=== PATIENT | male | born 1970 | race Caucasian/White ===

== ENCOUNTER 2016-05-29 22:24 | Emergency (ER) | payer SELFPAY ==
[2016-05-29 22:34] VITALS: BP 153/107; PULSE 88; TEMP 97.7; BMI 34.1
[2016-05-29] MEDS ORDERED: SODIUM CHLORIDE 1,000 ML IV STA (23:33)
[2016-05-29] MEDS ORDERED: morphine CARPU-JECT 4 MG/1 ML DISP.SYRIN IVPUSH ONE (23:55)
[2016-05-29 23:56] LABS: BASOPHIL 0.9 % (0-2.0); EOSINOPHIL 2.4 % (0-4.5); MCH 29.7 pg (25.7-33.7); MCHC 34.5 g/dl (32.0-35.9); MEAN PLT VOLUME 7.8 fl (7.5-11.1); NEUTROPHILS 62.5 % (42.8-82.8); PLATELET COUNT 378 K/MM3 (134-434); RDW 12.8 % (11.9-15.9); WHITE BLOOD COUNT 12.8 K/mm3 (4.0-10.0)
[2016-05-29] MEDS ORDERED: morphine CARPU-JECT 4 MG/1 ML DISP.SYRIN ONE (23:58)
[2016-05-30] MEDS ORDERED: LIDOCAINE HCL 1%, 10 MG/ML (50 mL VIAL) INF ONE (00:04)
[2016-05-30] MEDS ORDERED: LIDOCAINE HCL/PF 1% SDV 5ML VIAL ONE (00:19)
[2016-05-30 00:20] LABS: CALCIUM 8.6 mg/dL (8.5-10.1); COCKROFT - GAULT 123.98
--- NOTE | 2016-05-30 01:18 | PDOC ---
History of Present Illness - General Chief Complaint: Abscess Boil Stated Complaint: ABSCESS BOIL Time Seen by Provider: 05/29/16 23:09 History Source: Patient Exam Limitations: No Limitations - History of Present Illness Initial Comments: 05/30/16 01:10 45yo Male patient presents to ED c/o back pain (abscess). Patient states symptoms began 1 week ago with intermittent low grade fever and h/a. Patient denies any other complaints at this time. Timing/Duration: reports: week Severity: Yes: severe Location: reports: torso Respiratory Risk Factors: denies: no cause identified, exposure to illness, exposure to allergen, foods, insect bite, insect sting, medications, pollen, soaps, other Modifying Factors: worse with: antihistamine, calamine lotion, prednisone, scratching, topical steriods, other Associated Symptoms: denies: denies symptoms, blisters, change in skin texture, edema, fever, flushing, headache, hives, jaundice, malaise, nasal congestion, numbness, pallor, paresthesia, petechiae, rash, sore throat, swelling/mass/lumps , tingling, other Past History - Travel Traveled outside of the country in the last 30 days: No Close contact w/someone who was outside of country & ill: No - Past Medical History Allergies/Adverse Reactions: Allergies Allergy/AdvReac Type Severity Reaction Status Date / Time No Known Allergies Allergy Verified 05/29/16 22:32 Home Medications: Ambulatory Orders Cephalexin Monohydrate [Keflex -] 500 mg PO BID #20 capsule 05/30/16 Oxycodone HCl/Acetaminophen [Percocet 5-325 mg Tablet] 1 tab PO Q6H PRN #20 tablet MDD 4 tabs 05/30/16 Sulfamethoxazole/Trimethoprim [Bactrim Ds -] 1 tab PO BID #20 tablet 05/30/16 - Psycho/Social/Smoking Cessation Hx Suicidal Ideation: No Smoking History: Never smoked Review of Systems - Review of Systems Able to Perform ROS?: Yes Is the patient limited Mongolian proficient: No Constitutional: Yes: Fever. No: Chills Cardiac (ROS): No: Chest Pain Integumentary: Yes: Other (Abscess/Boil) All Other Systems: Reviewed and Negative *Physical Exam - Vital Signs Last Vital Signs Temp Pulse Resp BP Pulse Ox 97.7 F 88 18 153/107 97 05/29/16 22:32 05/29/16 22:32 05/29/16 22:32 05/29/16 22:32 05/29/16 22:32 - Physical Exam General Appearance: Yes: Nourished, Appropriately Dressed, Mild Distress. No: Apparent Distress, Moderate Distress, Severe Distress Neck: positive: Trachea midline, Supple. negative: Stridor, Lymphadenopathy (R) , Lymphadenopathy (L) Respiratory/Chest: positive: Lungs Clear, Normal Breath Sounds. negative: Chest Tender, Respiratory Distress, Accessory Muscle Use, Labored Respiration, Rapid RR Cardiovascular: positive: Regular Rhythm, Regular Rate. negative: S1, S2, Edema , JVD, Murmur Gastrointestinal/Abdominal: positive: Normal Bowel Sounds, Soft, Distended. negative: Tender, Guarding, Rebound, Tenderness Musculoskeletal: positive: Normal Inspection. negative: CVA Tenderness, Decreased Range of Motion, Muscle Spasm Extremity: positive: Normal Capillary Refill, Normal Inspection, Normal Range of Motion Integumentary: positive: Normal Color, Dry, Warm, Erythema, Swelling, Other ( Large Boil to thoraic region of upper back.) Neurologic: positive: float builder II-XII NML intact, Fully Oriented, Alert, Normal Mood/ Affect, Normal Response, Motor Strength 5/5 Procedures - Incision and Drainage I&D Site: Right: Torso Betadine cleansed: No Anesthesia: 1% Lidocaine Volume(ml): 8 Blade Size: 11 Attempts: 1 Iodinated Packin/4 in Plain Packing: Yes Complications: none Dressing: Yes (Pressure dressing) Progress: 05/30/16 01:14 Patient tolerated procedure fairly. ED Treatment Course - LABORATORY CBC & Chemistry Diagram: 05/29/16 23:49 05/29/16 23:49 - ADDITIONAL ORDERS Additional order review: Laboratory Results 05/29/16 23:49 Sodium 139 Potassium 4.1 Chloride 102 Carbon Dioxide 28 Anion Gap 9 BUN 15 Creatinine 1.0 Random Glucose 95 Calcium 8.6 05/29/16 23:49 RBC 5.18 MCV 86.0 MCHC 34.5 RDW 12.8 MPV 7.8 Neutrophils % 62.5 Lymphocytes % 27.3 Monocytes % 6.9 Eosinophils % 2.4 Basophils % 0.9 - Medications Given in the ED: ED Medications Discontinued Medications Generic Name Dose Route Start Last Admin Trade Name Freq PRN Reason Stop Dose Admin Sodium Chloride 1,000 mls @ 1,000 mls/hr 05/29/16 23:33 05/29/16 23:53 Normal Saline - IV 05/30/16 00:32 1,000 mls/hr ASDIR STA Administration Lidocaine HCl 10 ml 05/30/16 00:04 05/30/16 00:22 Xylocaine 1% INF 05/30/16 00:05 10 ml ONCE ONE Administration Morphine Sulfate 4 mg 05/29/16 23:55 05/30/16 00:02 Morphine Injection - IVPUSH 05/29/16 23:56 4 mg ONCE ONE Administration *DC/Admit/Observation/Transfer Diagnosis at time of Disposition: Boil, back - Discharge Dispostion Disposition: HOME Condition at time of disposition: Improved Admit: No - Prescriptions Prescriptions: Sulfamethoxazole/Trimethoprim [Bactrim Ds -] 1 tab PO BID #20 tablet Cephalexin Monohydrate [Keflex -] 500 mg PO BID #20 capsule Oxycodone HCl/Acetaminophen [Percocet 5-325 mg Tablet] 1 tab PO Q6H PRN #20 tablet MDD 4 tabs PRN Reason: Severe Back Pain - Patient Instructions Printed Discharge Instructions: DI for Incision and Drainage of a Skin Abscess Additional Instructions: Regrese el lunes para retirar el embalaje. Raub los medicamentos segn lo prescrito. No conduzca, madyson alcohol ni opere maquinaria pesada mientras est tomando Percocet. Regresar si los sntomas empeoran o cualquier inquietud para armin evaluacin posterior. Return on Wednesday for removal of packing. Take medications as prescribed. Do not drive, drink alcohol, or operate heavy machinery while taking Percocet. Return if symptoms worsen or any concerns for further evaluation. Print Language: GREENLANDIC - Post Discharge Activity Work/School Note: Back to Work
[2016-05-30] MEDS ORDERED: SULFAMETHOXAZOLE/TRIMETHOPRIM 800MG/160MG D.S. TABLET PO ONE (01:21)
[2016-05-30] MEDS ORDERED: CEPHALEXIN MONOHYDRATE 250 MG CAPSULE (FP) ONE (01:21)
[2016-05-30] MEDS ORDERED: CEPHALEXIN MONOHYDRATE 500 MG CAPSULE (UD) PO ONE (01:21)
[2016-05-30] MEDS ORDERED: OXYCODONE/APAP 5/325MG COMBO TABLET PO ONE (01:22)
[2016-05-30] MEDS ORDERED: SULFAMETHOXAZOLE/TRIMETHOPRIM 800MG/160MG D.S. TABLET ONE (01:23)
[2016-05-30] MEDS ORDERED: OXYCODONE/APAP 5/325MG COMBO TABLET ONE (01:26)
== END 2016-05-30 01:31 | disposition home or self-care (01) ==
LOC: JER 22:24
PROC: 0H96XZZ Drainage of Back Skin, External Approach (ICD-10-PCS; principal; 2016-05-29)
PROC: 3E0337Z Introduction of Electrolytic and Water Balance Substance into Peripheral Vein, Percutaneous Approach (ICD-10-PCS; 2016-05-29)
PROC: 3E033NZ Introduction of Analgesics, Hypnotics, Sedatives into Peripheral Vein, Percutaneous Approach (ICD-10-PCS; 2016-05-29)
DX: L02.212 Cutaneous abscess of back [any part, except buttock and flank] (principal)
CPT/HCPCS: 36415; 80048; 85025; 87040; 87070; 87186; 87205; 99283-25

== ENCOUNTER 2016-06-01 21:32 | Emergency (ER) | payer SELFPAY ==
[2016-06-01 21:51] VITALS: BP 140/93; PULSE 66; TEMP 98.1; BMI 35.2
--- NOTE | 2016-06-01 22:31 | PDOC ---
History of Present Illness - General Chief Complaint: Revisit,Wound Recheck Stated Complaint: wound recheck Time Seen by Provider: 06/01/16 22:20 History Source: Patient Exam Limitations: No Limitations - History of Present Illness Initial Comments: 06/02/16 12:57 Chief complaint: Wound check Patient is a 45-year-old male who had an abscess on his back incised and drained 2 days ago in the ER, put on Bactrim and Keflex and return for a wound check. Patient feels fine. Not taken bandage off back. GENERAL/CONSTITUTIONAL: No fever, weakness. dizziness HEAD, EYES, EARS, NOSE AND THROAT: No change in vision. No ear pain or discharge. No sore throat. CARDIOVASCULAR: No chest pain RESPIRATORY: No shortness of breath or cough GASTROINTESTINAL: No pain, nausea, vomiting, diarrhea or constipation GENITOURINARY: No dysuria MUSCULOSKELETAL: No neck or back pain SKIN: No rash NEUROLOGIC: No headache, vertigo, loss of consciousness, or loss of sensation. GENERAL: The patient is awake, alert, and fully oriented, in no acute distress. HEAD: Normal with no signs of trauma. EYES: Pupils equal, round and reactive to light, sclera anicteric, conjunctiva clear. ENT: pharynx: no erythema, no exudate, uvula midline NECK: supple CHEST: clear, nontender, rr Back: Bandage in place, remove, small amount of drainage, no cellulitis, packing removed. EXTREMITIES: Normal range of motion, no edema. NEUROLOGICAL: Normal speech, normal gait. SKIN: Warm, Dry Past History - Past Medical History Allergies/Adverse Reactions: Allergies Allergy/AdvReac Type Severity Reaction Status Date / Time No Known Allergies Allergy Verified 06/01/16 21:48 Home Medications: Ambulatory Orders Cephalexin Monohydrate [Keflex -] 500 mg PO BID #20 capsule 05/30/16 Oxycodone HCl/Acetaminophen [Percocet 5-325 mg Tablet] 1 tab PO Q6H PRN #20 tablet MDD 4 tabs 05/30/16 Sulfamethoxazole/Trimethoprim [Bactrim Ds -] 1 tab PO BID #20 tablet 05/30/16 Other medical history: denies - Immunization History Immunization Up to Date: Yes - Psycho/Social/Smoking Cessation Hx Suicidal Ideation: No Smoking History: Never smoked Hx Alcohol Use: No Drug/Substance Use Hx: No *Physical Exam - Vital Signs Last Vital Signs Temp Pulse Resp BP Pulse Ox 98.1 F 66 20 140/93 98 06/01/16 21:48 06/01/16 21:48 06/01/16 21:48 06/01/16 21:48 06/01/16 21:48 Medical Decision Making - Medical Decision Making 06/02/16 12:59 Patient with incision and drainage of abscess to the back 2 days ago returning for wound check, feels fine, no fever, minimal pain, no signs of cellulitis, minimal drainage after packing removed. Reviewed wound culture which showed MRSA , sensitive to Bactrim which patient is on and will continue. Wound is irrigated and redressed and patient will given instructions that she can shower , and information regarding MRSA and told to finish the antibiotics and to follow-up *DC/Admit/Observation/Transfer Diagnosis at time of Disposition: Wound check, abscess - Discharge Dispostion Disposition: HOME Condition at time of disposition: Stable Admit: No - Patient Instructions Printed Discharge Instructions: Boil, Methicillin-Resistant Staph Infection Additional Instructions: You can shower and get it wet, take the antibiotics until they're finished You have a bacteria called MRSA, make sure that you clean the areas, especially the shower very well.
[2016-06-01] MEDS ORDERED: IBUPROFEN 600 MG TABLET (FP) PO ONE ×2 (23:03→23:04)
== END 2016-06-01 23:08 | disposition home or self-care (01) ==
LOC: JERFT 21:32
DX: Z09 Encounter for follow-up examination after completed treatment for conditions other than malignant neoplasm (principal)
CPT/HCPCS: 99281-25